=== PATIENT | male | born 1950 | race Caucasian/White ===

== ENCOUNTER 2017-01-18 08:48 | Outpatient (CLI) | payer MEDICARE | END 2017-01-18 08:49 | disposition home or self-care (01) | LOC: BICULT 08:48 | PROVIDERS: ATTEND Family Medicine | DX: Z87.442 Personal history of urinary calculi (principal); N20.0 Calculus of kidney; N40.0 Benign prostatic hyperplasia without lower urinary tract symptoms | CPT/HCPCS: 76770 ==

== ENCOUNTER 2017-12-21 12:11 | Emergency (ER) | payer MEDICARE ==
[2017-12-21 12:59] LABS: #Basophils 0.1 thou/uL (0.0-0.2); #Eosinphils 0.1 thou/uL (0.0-0.7); #Lymphocytes 1.8 thou/uL (1.20-3.40); #Monocytes 0.5 thou/uL (0.11-0.59); #Neutrophils 5.2 thou/uL (1.40-6.50); %Basophils 0.9 % (0.0-1.0); %Eosinophils 1.7 % (0.0-10.0); %Lymphocytes 23.5 % (21.0-51.0); %Monocytes 6.9 % (0.0-10.0); Hemoglobin 13.8 g/dL (14.0-18.0); Mean Corpuscular HGB CONC 33.3 g/dL (32.0-36.0); Mean Corpuscular Hemoglobin 30.4 pg (27.0-31.0); Mean Corpuscular Volume 91.3 fL (78.0-98.0); Mean Platelet Volume 7.6 fL (7.4-10.4); Platelet Count 206 thou/uL (130-400); RBC Distribution Width 11.4 % (11.5-14.5); Red Blood Cell (RBC) Count 4.53 mill/uL (4.70-6.10); White Blood Cell (WBC) Count 7.8 thou/uL (4.8-10.8)
[2017-12-21 13:29] LABS: ALT (SGPT) 26 U/L (8-55); AST (SGOT) 24 U/L (5-34); Albumin 4.3 g/dL (3.4-4.8); Alkaline Phosphatase 62 U/L (40-150); Anion Gap 12 mmol/L (10-20); BUN (Urea Nitrogen) 17 mg/dL (8.4-25.7); Bilirubin, Total 1.5 mg/dL (0.2-1.2); Calc. Creatinine Clearance 0 mL/min (70-130); Calcium 10.4 mg/dL (7.8-10.44); Carbon Dioxide 24 mmol/L (23-31); Chloride 104 mmol/L (98-107); Estimated GFR-MDRD 71; Glucose 92 mg/dL (80-115); Protein, Total 7.3 g/dL (5.8-8.1); Sodium 136 mmol/L (136-145)
[2017-12-21 13:32] LABS: CKMB 1.5 ng/mL (0-6.6); Troponin I Less than 0.010 ng/mL (< 0.028)
--- NOTE | 2017-12-21 14:46 | CT ---
CT BRAIN WITHOUT CONTRAST: HISTORY: Left side numbness. FINDINGS/IMPRESSION: No evidence of infarct, hemorrhage, midline shift, or abnormal extraaxial fluid collection is seen. The ventricular size is normal and the basilar cisterns are patent. The bony calvarium is intact. POS: [facility]
--- NOTE | 2017-12-21 15:11 | RAD ---
SINGLE VIEW OF THE CHEST: Comparison: None. History: Left sided weakness starting two days ago. FINDINGS: Single view of the chest shows a normal sized cardiomediastinal silhouette. There is no evidence of c onsolidation, mass, or pleural effusion. IMPRESSION: No evidence of acute cardiopulmonary disease. POS: [facility]
== END 2017-12-21 15:10 | disposition home or self-care (01) ==
LOC: ERS 12:11
DX: R20.0 Anesthesia of skin (principal); I10 Essential (primary) hypertension; E78.2 Mixed hyperlipidemia; Z79.899 Other long term (current) drug therapy
CPT/HCPCS: 36415; 70450; 71045; 80053; 82553; 84484; 85025; 93005; 94760

== ENCOUNTER 2018-01-06 09:27 | Outpatient (CLI) | payer MEDICARE ==
--- NOTE | 2018-01-06 10:50 | ULT ---
BILATERAL CAROTID DUPLEX ULTRASOUND: DATE: 01/06/18 HISTORY: TIA. TECHNIQUE: Franco scale ultrasound with color flow and spectral Doppler imaging of the extracranial carotid artery systems performed bilaterally. FINDINGS: There is plaque formation on either side. The peak systolic velocity in the right ICA measures 85 cm/second with an end-diastolic velocity of 2 2 cm/second and a systolic ratio of 0.90. The peak systolic velocity in the left ICA measures 93 cm/second with an end-diastolic velocity of 24 cm/second and a systolic ratio of 0.73. Flow in both vertebral arteries remains antegrade. IMPRESSION: No evidence of hemodynamically significant stenosis. POS: [facility]
== END 2018-01-06 09:28 | disposition home or self-care (01) ==
LOC: BICULT 09:27
PROVIDERS: ATTEND Family Medicine
DX: G45.9 Transient cerebral ischemic attack, unspecified (principal)
CPT/HCPCS: 93880

== ENCOUNTER 2018-04-17 21:41 | Emergency (ER) | payer MEDICARE ==
[2018-04-17] MEDS ORDERED: Morphine 4 MG/ML VIAL ONE (22:05)
[2018-04-17] MEDS ORDERED: Dexamethasone 4 MG TAB ONE (22:06)
--- NOTE | 2018-04-17 23:47 | RAD ---
LEFT FEMUR FOUR VIEWS: Indication: Left leg pain. IMPRESSION: No acute fracture or subluxation is evident. There is a bipartite patella. POS: [facility]
--- NOTE | 2018-04-17 23:48 | RAD ---
AP PELVIS: Indication: 58-year-old male with chronic back pain and left sided buttock pain. Comparison: None. FINDINGS: There are multiple phleboliths within the lower pelvis. SI joints are normal appearing. Mild degenera tive changes are seen involving both hips. No acute fracture is evident. IMPRESSION: No acute osseous abnormality. POS: [facility]
--- NOTE | 2018-04-17 23:50 | RAD ---
THREE VIEWS LUMBAR SPINE Indication: Back pain. FINDINGS: There is mild disc degenerative disease of L3-4 through L4-5 with moderate disc degenerative disease at L5-S1. There is a grade I anterolisthesis of L4 on L5. No acute fracture or subluxation is evident . IMPRESSION: Spondylosis of the lumbar spine. No acute osseous abnormality. POS: [facility]
[2018-04-18] MEDS ORDERED: Diazepam 5 MG TAB ONE (00:13)
== END 2018-04-18 00:42 | disposition home or self-care (01) ==
LOC: ERS 21:41
DX: M54.5 Low back pain (principal); E78.1 Pure hyperglyceridemia; I10 Essential (primary) hypertension; Z79.82 Long term (current) use of aspirin; Z79.899 Other long term (current) drug therapy; Z79.891 Long term (current) use of opiate analgesic; Z79.1 Long term (current) use of non-steroidal anti-inflammatories (NSAID)
CPT/HCPCS: 72100; 72170; 96372; J2270; J8540

== ENCOUNTER 2018-04-19 12:15 | Outpatient (CLI) | payer MEDICARE ==
--- NOTE | 2018-04-19 14:48 | MRI ---
MRI BRAIN WITHOUT CONTRAST: Date: 04/19/18 HISTORY: Memory loss. FINDINGS: Correlation is made with the noncontrasted CT scan of 12/21/17. No restricted diffusion is seen. No evidence of infarct, hemorrhage, midline shift, or abnormal extra -axial fluid collections are noted. There are a few foci of T2 prolongation in the periventricular wh ite matter consistent with mild chronic small vessel ischemic disease. There is mucosal disease in th e paranasal sinuses. IMPRESSION: 1. No evidence of acute intracranial process. 2. Mild chronic small vessel ischemic disease. 3. Paranasal sinus disease. POS: [facility]
--- NOTE | 2018-04-19 15:35 | MRI ---
MRI LUMBAR SPINE WITHOUT CONTRAST: 04/19/18 Multiplanar and multisequential imaging lumbar spine obtained. INDICATIONS: Lumbar radiculopathy. FINDINGS: Lumbar vertebra maintain normal height. Vertebral body signal is normal. Mild anterolisthesis of L4-5 is noted measured at approximately 3 mm. There is mild loss of disc spaces at L3-4 and L4-5. The oth er disc spaces are preserved. At L1-2, no significant disc bulge or protrusion. No central canal or foraminal stenosis. At L2-3, no significant disc bulge. Mild facet hypertrophy. No central canal or foraminal stenosis. At L3-4, there is an annular fissure with a broad based disc bulge and small central protrusion kendra ening the anterior thecal sac. Facet and ligamentous hypertrophy is mild to moderate. These changes r esult in moderate central anal stenosis. There is bilateral foraminal stenosis, more prominent on the left due to the diffuse disc bulge and facet hypertrophy. There is asymmetric disc bulge/protrusion to the left which does encroach into the left foramina. At L4-5, there is a slight anterolisthesis as noted above. There is a diffuse disc bulge flattening t he thecal sac. Facet and ligamentous hypertrophy. Moderate central canal stenosis. Right foraminal st enosis secondary to asymmetric bulge into the right foramina and associated facet hypertrophy. There appears to be contact with the exiting right L4 nerve root. At L5-S1, no significant disc bulge. Mild facet arthrosis without significant central canal or forami nal stenosis. IMPRESSION: Moderate central canal stenosis at L3-4 and L4-5 as described above. POS: [facility]
== END 2018-04-19 12:16 | disposition home or self-care (01) ==
LOC: MRI 12:15
PROVIDERS: ATTEND Family Medicine
DX: M54.17 Radiculopathy, lumbosacral region (principal); R41.3 Other amnesia; M48.061 Spinal stenosis, lumbar region without neurogenic claudication; I67.82 Cerebral ischemia; J32.9 Chronic sinusitis, unspecified
CPT/HCPCS: 70551; 72148

== ENCOUNTER 2018-05-09 06:51 | Day surgery (SDC) | payer MEDICARE ==
[2018-05-06 12:10] VITALS: BMI 29.2
[2018-05-09 07:48] LABS: Anion Gap 11 mmol/L (10-20); BUN (Urea Nitrogen) 15 mg/dL (8.4-25.7); Calc. Creatinine Clearance 86 mL/min (70-130); Calcium 9.7 mg/dL (7.8-10.44); Carbon Dioxide 28 mmol/L (23-31); Chloride 104 mmol/L (98-107); Estimated GFR-MDRD 81; Glucose 96 mg/dL (80-115); Sodium 139 mmol/L (136-145)
[2018-05-09] MEDS ORDERED: Fentanyl 100 MCG/2 ML VIAL ONE ×4 (08:55→12:09)
[2018-05-09] MEDS ORDERED: Rocuronium Bromide 50 MG/5 ML VIAL ONE (08:56)
[2018-05-09] MEDS ORDERED: PROPOFOL 20 ML ONE (08:56)
[2018-05-09] MEDS ORDERED: Lidocaine 1% PF 5 ML VIAL ONE (08:56)
[2018-05-09] MEDS ORDERED: Thrombin 5000 UNITS/5 ML VIAL ONE (09:19)
[2018-05-09] MEDS ORDERED: Bupivacaine HCl 0.5%/Epinephrine 1:200,000/PF 30 ml Vial ONE (09:19)
[2018-05-09] MEDS ORDERED: ePHEDrine/0.9% NaCl/PF SYRINGE 50 mg/10 ml ONE (10:08)
[2018-05-09] MEDS ORDERED: Dexamethasone 20 MG/5 ML VIAL ONE (10:14)
[2018-05-09] MEDS ORDERED: Ondansetron PF 4 MG/2 ML Vial ONE (10:14)
[2018-05-09] MEDS ORDERED: PHENYLEPHRINE-NS 100 MCG/ML 10 ML SYRINGE ONE (10:20)
[2018-05-09] MEDS ORDERED: Glycopyrrolate 0.2 MG/ML 5 ML SYRINGE ONE (10:24)
[2018-05-09] MEDS ORDERED: Tamsulosin HCl 0.4 MG CAP ONE (11:23)
--- NOTE | 2018-05-09 12:49 | OP ---
DATE OF PROCEDURE: 05/09/2018 [employer]ICOPTER PIL[employer] INSTRUCTOR: Alex Prakash PA-C INDICATIONS: Pain. DIAGNOSES: Left L3 and left L5 radiculopathies. PROCEDURES PERFORMED: Left L3 foraminotomy and diskectomy and left L4-L5 hemilaminectomy, medial facetectomy, and decompression. ANESTHESIA: General. DESCRIPTION OF PROCEDURE: The patient was brought into the operating room, placed under general anesthesia. He was flipped from the supine to prone position on operating room table. A linear incision was planned over the L3-L4 and L4-L5 segments. After prepping and draping and after preoperative pause, incision was created. The soft tissues were swept left of midline. A self-retaining retractor was placed for optimal exposure. After confirming the appropriate level with C-arm fluoroscopy, high-speed cutting drill bit was used to perform a laminectomy along the inferior aspect of L3 until the L3 foramen was identified. The foraminotomy was extended laterally to encompass the medial aspect of the facet joint. One blade knife was used to perform an annulotomy and the disk material, the disk material was removed, but in the foramen. At the end, the left L3 nerve root as it exited was well decompressed. We then redirected our attention to the L4-L5 interface on the left, where hemilaminectomy was performed along the inferior aspect of L4 and the superior aspect of L5 in order to decompress the descending left L5 nerve root. The laminectomy was extended to the medial hinojosa of the pedicle at L4-L5. After complete decompression, the wound was irrigated. Hemostasis was maintained throughout. The wound was then closed in anatomic layers and a pressure dressing was applied. There were no known procedural complications. Job ID: [id number]
--- NOTE | 2018-05-10 21:02 | EKG ---
Test Reason : PREOP Blood Pressure : / mmHG Vent. Rate : 085 BPM Atrial Rate : 085 BPM P-R Int : 160 ms QRS Dur : 084 ms QT Int : 354 ms P-R-T Axes : 072 037 022 degrees QTc Int : 421 ms Normal sinus rhythm Normal ECG When compared with ECG of 21-DEC-2017 12:21, No significant change was found Confirmed by CHESTER VILLAVICENCIO, SJuany ([id number]) on 05/10/2018 9:02:11 PM Referred By: GRACE Confirmed By:DR. Lisa BRIGGS MD
== END 2018-05-09 15:20 | disposition home or self-care (01) ==
LOC: SDC 06:51
PROVIDERS: ATTEND Neurological Surgery
PROC: 01NB0ZZ Release Lumbar Nerve, Open Approach (ICD-10-PCS; principal; 2018-05-09)
PROC: 0SB20ZZ Excision of Lumbar Vertebral Disc, Open Approach (ICD-10-PCS; 2018-05-09)
DX: M54.16 Radiculopathy, lumbar region (principal); M48.061 Spinal stenosis, lumbar region without neurogenic claudication; I10 Essential (primary) hypertension; E78.5 Hyperlipidemia, unspecified; J30.9 Allergic rhinitis, unspecified; Z79.82 Long term (current) use of aspirin; Z79.899 Other long term (current) drug therapy
CPT/HCPCS: 36415; 76000; 80048; 93005; 93010; J0670; J1100; J2001; J2405; J2704; J3010

== ENCOUNTER 2018-11-03 08:25 | Outpatient (CLI) | payer MEDICARE ==
--- NOTE | 2018-11-03 15:36 | NM ---
NUCLEAR MEDICINE BRAIN TOMOGRAPHIC EXAM: HISTORY: Involuntary abnormal movements. TECHNIQUE: A nuclear medicine tomographic brain scan was performed after administration of 4.7 mCi of I-123 Iofl upane. FINDINGS: The uptake of the radiopharmaceutical in the basal ganglia is in a round configuration on the right a nd predominantly in a round configuration on the left. However, there is an area of slight increased uptake of the radiopharmaceutical separate from the more anterior aspect on the left. IMPRESSION: Abnormal appearance of the radiopharmaceutical accumulation in the basal ganglia. This is consistent with Parkinsonian syndrome. This abnormality is definitely abnormal on the right and possibly abnor mal on the left. POS: [facility]
== END 2018-11-03 08:26 | disposition home or self-care (01) ==
LOC: NM 08:25
PROVIDERS: ATTEND Nurse Practitioner Acute Care
DX: R25.9 Unspecified abnormal involuntary movements (principal); R93.0 Abnormal findings on diagnostic imaging of skull and head, not elsewhere classified
CPT/HCPCS: 78607; A9584